=== PATIENT | male | born 1990 | race Caucasian/White ===

== ENCOUNTER 2019-02-18 04:04 | Emergency (ER) | payer OTHER ==
[~2019-02-18] VITALS: Wt 80.0 kg
[2019-02-18 04:16] VITALS: BP 128/80; PULSE 79; RESP 19
[2019-02-18] MEDS ORDERED: ACETAMINOPHEN 500 MG TAB PO ONE (04:30)
[2019-02-18] MEDS ORDERED: DIPHTH/TET/ACEL PERTUSS (ADULT) 0.5 ML VIAL IM* ONE (04:30)
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
== END 2019-02-18 05:55 | disposition home or self-care (01) ==
LOC: E/R 04:04
DX: S00.83XA Contusion of other part of head, initial encounter (principal); S60.811A Abrasion of right wrist, initial encounter; S60.511A Abrasion of right hand, initial encounter; S60.512A Abrasion of left hand, initial encounter; F17.210 Nicotine dependence, cigarettes, uncomplicated; Y04.8XXA Assault by other bodily force, initial encounter; Z23 Encounter for immunization; Z21 Asymptomatic human immunodeficiency virus [HIV] infection status
CPT/HCPCS: 70450; 90471; 90715; Z7502; Z7610